=== PATIENT | male | born 1980 | race Two or more races ===

== ENCOUNTER 2024-04-06 12:00 | Emergency (ER) | payer SELFPAY ==
[~2024-04-06] VITALS: Ht 182.9 cm; Wt 72.8 kg
[2024-04-06 13:02] VITALS: BP 110/71; PULSE 74; RESP 16; TEMP 98.6; O2SAT 98
[2024-04-06] MEDS ORDERED: IBUP1TAB5 PO (14:56)
== END 2024-04-06 14:57 | disposition home or self-care (01) ==
LOC: ER 12:00
DX: R51.9 Headache, unspecified (principal); W01.0XXA Fall on same level from slipping, tripping and stumbling without subsequent striking against object, initial encounter; Y93.E1 Activity, personal bathing and showering; Y92.89 Other specified places as the place of occurrence of the external cause; Y99.8 Other external cause status
CPT/HCPCS: 70450